=== PATIENT | female | born 1950 | race Caucasian/White ===

== ENCOUNTER → 2017-01-08 | Outpatient (CLI) | payer OTHER, MEDICARE | LOC: BMCIMAGING 10:52 | PROVIDERS: ATTEND Internal Medicine | DX: J98.4 Other disorders of lung (principal); R04.2 Hemoptysis; R05 Cough; H92.01 Otalgia, right ear ==

== ENCOUNTER 2017-03-11 18:30 | Emergency (ER) | payer OTHER, MEDICARE ==
[2017-03-11 18:34] VITALS: BP 147/78; PULSE 56; RESP 14; TEMP 98.2; O2SAT 95
--- NOTE | 2017-03-11 19:06 | EDPHY ---
H & P Time Seen by Provider: 03/11/17 18:41 HPI/ROS: CHIEF COMPLAINT: Left 4th finger injury HISTORY OF PRESENT ILLNESS: 66-year-old female presents to the emergency department by private vehicle with injury to her left 4th finger. The patient was at home and accidentally cut her left 4th finger with a knife. The incident happened just prior to arrival. She is right-hand dominant. She believes her tetanus shot is current. Denies any other trauma or injury. ROS: Denies numbness or tingling in her fingers, pain in her other fingers. Denies retained foreign body. Past Medical/Surgical History: Rheumatoid arthritis, spinal surgery Social History: Has a life partner and lives in [place] Smoking Status: Former smoker Physical Exam: On examination the patient has a very small skin avulsion to the dorsal aspect of her left 4th finger extending to the distal tip of the finger. She is very small injury to her nail bed and partial nail avulsion. Her nail is otherwise intact. There is slow active bleeding noted. No palpable bony tenderness. Full range of motion of her fingers. The other fingers do not appear injured. Constitutional: Initial Vital Signs Temperature (C) 36.8 C 03/11/17 18:33 Heart Rate 56 L 03/11/17 18:33 Respiratory Rate 14 03/11/17 18:33 Blood Pressure 147/78 H 03/11/17 18:33 O2 Sat (%) 95 03/11/17 18:33 O2 Delivery Mode Room Air Allergies/Adverse Reactions: duloxetine HCl [From Cymbalta] Allergy (Unknown, Verified 08/20/11 20:36) Home Medications: Medication Instructions Recorded Aspirin [Aspirin 81mg] 81 mg PO DAILY 08/20/11 Citalopram [CeleXA] mg PO 08/20/11 MDM/Departure - [facility] [place] ED Course/Re-evaluation: 66-year-old female presents with injury to her left 4th finger. Injury feels very small skin avulsion to the left 4th finger. The finger was cleaned and surgical foam dressing applied. The patient believes her tetanus shot is current. I encouraged her to call her primary care provider and update this if needed within 72 hours. - Depart Disposition: Home, Routine, Self-Care Clinical Impression: left fourth finger skin avulsion Condition: Good Instructions: Skin Avulsion (ED), Acute Wounds (ED) Additional Instructions: Return if you notice any signs or symptoms of infection such as redness, swelling, increased pain, fever, purulent drainage. Keep wound dry, clean and protected ideally for at least [address] Elsa Melvin office tomorrow to make sure that your tetanus shot is indeed current. Update this within 72 hours of your injury. Referrals: Elsa Melvin MD [Primary Care Provider] - As per Instructions
== END 2017-03-11 19:38 | disposition home or self-care (01) ==
DX: S61.205A Unspecified open wound of left ring finger without damage to nail, initial encounter (principal); Z79.82 Long term (current) use of aspirin; Z87.891 Personal history of nicotine dependence; W26.0XXA Contact with knife, initial encounter; Y92.009 Unspecified place in unspecified non-institutional (private) residence as the place of occurrence of the external cause; Y99.8 Other external cause status; Y93.89 Activity, other specified

== ENCOUNTER → 2017-03-12 | Outpatient (CLI) | payer OTHER, MEDICARE | LOC: BMCIMAGING 15:13 | PROVIDERS: ATTEND Internal Medicine | DX: Z12.31 Encounter for screening mammogram for malignant neoplasm of breast (principal) | CPT/HCPCS: G0202 ==

== ENCOUNTER 2017-11-19 14:14 | Day surgery (SDC) | payer OTHER, MEDICARE ==
[2017-11-19] MEDS ORDERED: BUPIVACAINE 0.5% 30 ML SDV ONE (14:19)
[2017-11-19] MEDS ORDERED: BACITRACIN 50,000 UNITS/10 ML SYR IRR ONE (14:20)
[2017-11-19] MEDS ORDERED: ceFAZolin 2 GM/SWFI 2 GM/20 ML SYR IVP ONE (14:33)
--- NOTE | 2017-11-19 14:35 | PDHPUP ---
History & Physical Update H&P update statement: This history and physical update is based on an assessment of the patient which was completed after admission or registration (within 24 hours), but prior to the surgery/procedure.
[2017-11-19] MEDS ORDERED: MIDAZOLAM 2 MG/2 ML VIAL IVP ONE (14:37)
--- NOTE | 2017-11-19 14:37 | PDANEPAE ---
ANE History of Present Illness R plantar plate repair ANE Past Medical History - Cardiovascular History Hx Hypertension: No Hx Arrhythmias: No Hx Chest Pain: No Hx Coronary Artery / Peripheral Vascular Disease: No Hx CHF / Valvular Disease: No Hx Palpitations: No - Pulmonary History Hx Oxygen in Use at Home: No Hx Sleep Apnea: Yes Sleep Apnea Screening Result - Last Documented: Positive Pulmonary History Comment: LAURO uses CPAP - Neurologic History Hx Cerebrovascular Accident: No Hx Seizures: No Hx Dementia: No - Endocrine History Hx Diabetes: No - Renal History Hx Renal Disorders: No - Liver History Hx Hepatic Disorders: No - Neurological & Psychiatric Hx Hx Neurological and Psychiatric Disorders: Yes Neurological / Psychiatric History Comment: hX OF CONCUSSION. AUTOIMMUNE POSSIBLE ra - Cancer History Hx Cancer: No - Congenital Disorder History Hx Congenital Disorders: Yes Congenital History Comment: strokes - GI History Hx Gastrointestinal Disorders: No - Other Health History Other Health History: left foot rash - Chronic Pain History Chronic Pain: No - Surgical History Prior Surgeries: back sx 2009, multiple L arm surgeries ANE Review of Systems Review of systems is: negative Review of Systems: - Exercise capacity METS (RN): 4 METS ANE Patient History - Allergies Allergies/Adverse Reactions: duloxetine HCl [From Cymbalta] Allergy (Severe, Verified 11/15/17 11:03) Other-Enter Comments - Home Medications Home medications: home medication list seen and reviewed Home Medications: Citalopram [CeleXA] 08/20/11 [Last Taken Unknown] - NPO status NPO Status: no food or drink >8 hours - Anes Hx Hx Anesthesia Complications (with details): difficult intubation - Smoking Hx Smoking Status: Former smoker - Family Anes Hx Family Anes Hx: none Family Hx Anesthesia Complications: none ANE Labs/Vital Signs - Vital Signs Height: 167.64 cm Weight: 77.111 kg ANE Physical Exam - Airway Neck exam: FROM Mallampati Score: Class 1 Mouth exam: normal dental/mouth exam - Pulmonary Pulmonary: no respiratory distress - Cardiovascular Cardiovascular: regular rate and rhythym - ASA Status ASA Status: II ANE Anesthesia Plan Total IV Anesthesia: Yes
[2017-11-19] MEDS ORDERED: LIDOCAINE 1% 2 ML INJ ID PRN (14:40)
[2017-11-19] MEDS ORDERED: LR 1,000 ML IV ONE (14:40)
[2017-11-19 14:48] VITALS: RESP 18
[2017-11-19] MEDS ORDERED: PROPOFOL/EMULSION 500 MG/50 ML BOTTLE IV ONE (15:02)
[2017-11-19] MEDS ORDERED: LIDOCAINE 2% 100 MG/5 ML SYR ONE (15:18)
[2017-11-19] MEDS ORDERED: DEXAMETHASONE 4 MG/ML VIAL ONE (15:46)
[2017-11-19] MEDS ORDERED: PROMETHAZINE HCL 25 MG/ML INJ IVP PRN (15:51)
[2017-11-19] MEDS ORDERED: DEXAMETHASONE 4 MG/ML VIAL IVP PRN (15:51)
[2017-11-19] MEDS ORDERED: ONDANSETRON 4 MG/2 ML VIAL IVP PRN ×2 (15:51→16:01)
[2017-11-19] MEDS ORDERED: ACETAMINOPHEN 500 MG TAB PO PRN (15:51)
[2017-11-19] MEDS ORDERED: NALOXONE HCL 0.4 MG/ML INJ IVP PRN (15:51)
[2017-11-19] MEDS ORDERED: HYDROCODONE/APAP 5/325 TAB PO PRN (15:51)
[2017-11-19] MEDS ORDERED: OXYCODONE/APAP 5/325 TAB PO PRN (15:51)
[2017-11-19] MEDS ORDERED: fentaNYL 100 MCG/2 ML INJ IVP PRN (15:51)
[2017-11-19] MEDS ORDERED: HYDROmorphONE/DILAUDID 1 MG/ML INJ IVP PRN (15:51)
--- NOTE | 2017-11-19 15:53 | POSTANESTH ---
Post Anesthetic Evaluation Cardiovascular Status: Normal, Stable, Similar to Pre-Op Cond Respiratory Status: Similar to Pre-op Cond. Level of Consciousness/Mental Status: Can Participate in Eval, Mildly Sleepy, Arousable Pain Control: Adequate, Prn Tx Ordered Nausea/Vomiting Control: Adequate, Prn Tx Ordered Complications Possibly Related to Anesthesia: None Noted
[2017-11-19] MEDS ORDERED: ACETAMINOPHEN 500 MG TAB ONE (16:25)
[2017-11-19 16:44] VITALS: PULSE 47
[2017-11-19 16:46] VITALS: TEMP 97.2
[2017-11-19 17:19] VITALS: BP 113/63; O2SAT 96
--- NOTE | 2017-11-20 13:28 | GOP ---
[f rep st] OPERATIVE REPORT DATE OF OPERATION: SURGEON: Enrique Cuadra DPM MEDICAL ASSISTANT PRN: None. ANESTHESIA: MAC with local, 20 mL of 0.5% Marcaine plain. PREOPERATIVE DIAGNOSIS: 1. Metatarsalgia, right foot. 2. Closed fracture dislocation, 2nd metatarsophalangeal joint, right foot. 3. Transient synovitis, right foot. 4. Fracture 2nd metatarsal bone, right foot. POSTOPERATIVE DIAGNOSIS: 1. Metatarsalgia, right foot. 2. Closed fracture dislocation, 2nd metatarsophalangeal joint, right foot. 3. Transient synovitis, right foot. 4. Fracture 2nd metatarsal bone, right foot. PROCEDURE PERFORMED: 1. Second metatarsal osteotomy, right foot. 2. Open treatment of 2nd metatarsophalangeal joint dislocation, right foot. 3. Extensor tenotomy, right foot. 4. Repair of flexor tendon, right foot. 5. Transfer flexor tendon, right foot. 6. Open treatment of metatarsal fracture, right foot. 7. Arthrocentesis, right foot. FINDINGS: Consistent with diagnosis. ESTIMATED BLOOD LOSS: Zero. DESCRIPTION OF PROCEDURE: After identification, the patient was brought in the operating room and pl aced on the operating table in the supine position. Following IV sedation, local anesthesia was obta ined around the patient's right foot utilizing a total of 20 mL of 0.5% Marcaine plain. The right fo ot was then scrubbed, prepped and draped in the usual aseptic manner. Pneumatic ankle tourniquet was placed around the patient's right ankle with ample Webril padding. Esmarch bandage was utilized to exsanguinate the patient's right foot and ankle and the pneumatic ankle tourniquet was then inflated. Attention was directed to the dorsal aspect of the right foot, where a 4 cm linear longitudinal incis ion was made over the dorsal aspect of the 2nd metatarsophalangeal joint, right foot. This incision was deepened through the subcutaneous tissue with care being taken to identify and retract all vital neurovascular structures. Bleeders were ligated and cauterized as necessary. The incision was deepe fernando to the level of the capsular, where a linear capsulotomy was performed. Capsular structures were reflected medially and laterally, thus exposing the 2nd metatarsophalangeal joint at the operative s ite. The extensor digitorum longus tendon was lengthened in a Z technique, and reapproximated with 2 -0 Vicryl. Evaluation of the 2nd metatarsophalangeal joint indicated old fracture of the base of the proximal ph alanx and head of the 2nd metatarsal. A nonunion fracture fragment from the 2nd metatarsal head was visible at the dorsal aspect of the joint, it was excised and passed from the operative field. The j oint was evaluated and noted to be denuded of cartilage, at least 75% at both the metatarsal head and base of the proximal phalanx. A McGlamry elevator was inserted from distal to proximal in the 2nd m etatarsophalangeal joint to serve as a release of adhesions. Attention was directed to the 2nd metatarsal bone, where a Ronald 2nd metatarsal osteotomy was performe d in the head, neck and shaft of the 2nd metatarsal. This osteotomy was a njcvflc-isa-tiryfwn and os teotomy directed from dorsal distal to plantar proximal in the same angle as the weightbearing surfac e of the foot. Upon completion of this [id number]-hcu-sigmvec osteotomy, the capital fragment of the 2n d metatarsal head was pushed proximally and temporary fixated out the way. I distractor was used to evaluate the plantar aspect of the 2nd metatarsophalangeal joint, where extensive damage was noted to both the plantar plate and flexor tendon apparatus. The plantar plate structure was torn approximat elisha 50% and it was extremely fibrotic. The plantar plate was completely disconnected from the base o f the proximal phalanx, thus exposing the flexor tendon complex. The flexor digitorum longus tendon was noted to be partially torn. This was directly repaired with 2-0 Vicryl. The plantar plate struc ture was gathered with a suture passing instrument using a horizontal mattress and FiberWire. This F iberWire was then passed through to 2 crossing drill holes made in the base of the proximal phalanx o f the 2nd digit. These FiberWires were passed from plantar proximal to dorsal distal. Pulling on th kana FiberWire tapes reapproximated both the plantar plate complex, as well as the flexor tendon compl ex to the base of the 2nd proximal phalanx. The 2nd metatarsal was brought back out to length and fi xated using 2 x 2 snap off Arthrex screws in a 2 mm shortened position. This was anatomic. The fibe r tape was then pulled taut, transferring the plantar plate structure as well as the flexor tendon ap paratus to the base of the middle phalanx of the 2nd digit. The FiberWire tape was then tied to itse lf on the dorsal aspect of the 2nd proximal phalanx to serve as stable fixation of the soft tissue st ructures which were transferred. Attention was directed to the cartilaginous joint surface, which was denuded of cartilage. Microfract ure technique was performed in both the head of the 2nd metatarsal and base of the 2nd proximal phala nx. The incision site was then flushed with normal sterile saline solution. Capsular and ligamentou s structures were reapproximated utilizing 3-0 Vicryl. Subcutaneous tissue was reapproximated utiliz ing 3-0 Vicryl and skin reapproximated utilizing 5-0 Vicryl in a running subcuticular suture techniqu e. Upon completion of this procedure, 4 mg dexamethasone was injected into the right foot. The inci leland site was then dressed with Steri-Strips, Adaptic, 4 x 4 gauze, Webril, Sae, Cristobal bandage. The patient was transferred to the postoperative recovery room with vital signs stable and vascular statu s intact to the right foot. Patient tolerated procedure and anesthesia well. HEMOSTASIS: Right pneumatic ankle tourniquet inflated to 250 mmHg for 40 minutes. MATERIALS: Arthrex CPR kit x1. INJECTABLES: 4 mg dexamethasone. CONDITION: Stable. /[id number]/MODL
== END 2017-11-19 17:40 | disposition home or self-care (01) ==
LOC: FSGY 14:14
PROVIDERS: ATTEND Podiatrist
PROC: 0LQV0ZZ Repair Right Foot Tendon, Open Approach (ICD-10-PCS; principal; 2017-11-19 15:30)
PROC: 0L8V0ZZ Division of Right Foot Tendon, Open Approach (ICD-10-PCS; principal; 2017-11-19 15:30)
PROC: 0QQN0ZZ Repair Right Metatarsal, Open Approach (ICD-10-PCS; principal; 2017-11-19 15:30)
PROC: 0SSM04Z Reposition Right Metatarsal-Phalangeal Joint with Internal Fixation Device, Open Approach (ICD-10-PCS; principal; 2017-11-19 15:30)
DX: S93.124A Dislocation of metatarsophalangeal joint of right lesser toe(s), initial encounter (principal); S92.321A Displaced fracture of second metatarsal bone, right foot, initial encounter for closed fracture; M67.371 Transient synovitis, right ankle and foot; W01.198A Fall on same level from slipping, tripping and stumbling with subsequent striking against other object, initial encounter; G47.33 Obstructive sleep apnea (adult) (pediatric); Z99.89 Dependence on other enabling machines and devices; Z87.891 Personal history of nicotine dependence
CPT/HCPCS: C1713; J0690; J1100; J2001; J2250; J2704

== ENCOUNTER → 2018-01-12 | Outpatient (CLI) | payer OTHER, MEDICARE ==
[~2018-01-12] MED LIST: IOPAMIDOL (ISOVUE-300) 100 ML BTL ONE
== END ==
LOC: FIMAGING 12:47
PROVIDERS: ATTEND Family Medicine
DX: S20.212A Contusion of left front wall of thorax, initial encounter (principal); I70.0 Atherosclerosis of aorta; M51.36 Other intervertebral disc degeneration, lumbar region; M48.061 Spinal stenosis, lumbar region without neurogenic claudication
CPT/HCPCS: 71260; 74177; Q9967

== ENCOUNTER → 2018-03-13 | Outpatient (CLI) | payer OTHER, MEDICARE | LOC: BMCIMAGING 08:36 | PROVIDERS: ATTEND Internal Medicine | DX: Z12.31 Encounter for screening mammogram for malignant neoplasm of breast (principal) ==

== ENCOUNTER → 2018-06-06 | Outpatient (CLI) | payer OTHER, MEDICARE | LOC: BMCIMAGING 10:19 | PROVIDERS: ATTEND Internal Medicine | DX: Z13.820 Encounter for screening for osteoporosis (principal); M85.89 Other specified disorders of bone density and structure, multiple sites; Z78.0 Asymptomatic menopausal state; Z87.81 Personal history of (healed) traumatic fracture ==

== ENCOUNTER 2018-12-24 19:49 | Emergency (ER) | payer OTHER, MEDICARE ==
--- NOTE | 2018-12-24 20:51 | EDPHY ---
H & P Time Seen by Provider: 12/24/18 20:06 HPI/ROS: CHIEF COMPLAINT: Accidental ingestion HISTORY OF PRESENT ILLNESS: Patient is a 68-year-old female who presents emergency department after having an unknown ingestion. The patient states that she was given arch containing and chocolate from her son for . She has not eaten it since but decided to have her first taste this evening. She thought it tasted off. However, she was intrigued by the spiciness of the chocolate so took a second bite. She then had a sip of red wine. She felt a sudden burning sensation in her her mouth and tongue. This extended to her throat. She states that initially her tongue and throat were quite red. This has improved. She has no chest pain or shortness of breath. Her symptoms are improving. She does not regularly have allergic reaction and denies anaphylaxis. REVIEW OF SYSTEMS: 10 systems were reveiwed and are negative with the exception of the elements mentioned in the history of present illness. Past Medical/Surgical History: Includes rheumatoid arthritis, cervical injury Past surgical history: L5, L6 fusion Smoking Status: Former smoker Physical Exam: Vitals noted GENERAL: Well-appearing, in no acute distress, alert. HEENT: Eyes normal to inspection, normal pharynx, no signs of dehydration. No erythema. NECK: Normal, supple. No stridor. RESPIRATORY: Clear to auscultation bilaterally, no rales, rhonchi or wheezing. Normal CVS: Regular rate and rhythm, no rubs, murmurs, or gallops. ABDOMEN: Soft, nontender, nondistended, no organomegaly. BACK: Normal to inspection, no CVA tenderness. SKIN: Normal color, no rash, warm, dry. No pallor. EXTREMITIES: No pedal edema, no joint swelling. NEURO/PSYCH: Alert and oriented, normal mood and affect, normal motor sensory exam. Constitutional: Initial Vital Signs Temperature (C) 36.6 C 12/24/18 19:58 Heart Rate 56 L 12/24/18 19:58 Respiratory Rate 20 12/24/18 19:58 Blood Pressure 143/74 H 12/24/18 19:58 O2 Sat (%) 96 12/24/18 19:58 O2 Delivery Mode Room Air Allergies/Adverse Reactions: duloxetine HCl [From Cymbalta] Allergy (Severe, Verified 12/24/18 19:57) Other-Enter Comments Home Medications: Medication Instructions Recorded Citalopram [CeleXA] 08/20/11 Medical Decision Making ED Course/Re-evaluation: The in the emergency department I discussed possible etiologies with the patient. I answered all her questions. I rechecked the patient. She had no complaints of shortness of breath. No redness or swelling. Patient was given warnings prior to leaving. She will return with worsening symptoms. Differential Diagnosis: My differential includes but is not limited to allergic reaction, anaphylaxis, exposure, accidental ingestion Departure - Departure Disposition: Home, Routine, Self-Care Clinical Impression: Allergic reaction Qualifiers: Encounter type: initial encounter Qualified Code(s): T78.40XA - Allergy, unspecified, initial encounter Condition: Good Instructions: Food Allergy (ED) Additional Instructions: Return with increasing shortness of breath, increased throat swelling, redness, or any other concerns Referrals: Elsa Melvin MD [Primary Care Provider] - 5-7 days, call for appt.
[2018-12-24 21:34] VITALS: BP 127/84
== END 2018-12-24 21:34 | disposition home or self-care (01) ==
DX: T78.1XXA Other adverse food reactions, not elsewhere classified, initial encounter (principal)

== ENCOUNTER → 2018-12-26 | Outpatient (CLI) | payer OTHER, MEDICARE | LOC: FIMAGING 16:45 | PROVIDERS: ATTEND Otolaryngology | DX: T54.91XA Toxic effect of unspecified corrosive substance, accidental (unintentional), initial encounter (principal); R07.9 Chest pain, unspecified; K44.9 Diaphragmatic hernia without obstruction or gangrene ==

== ENCOUNTER → 2019-03-14 | Outpatient (CLI) | payer OTHER, MEDICARE | LOC: BMCIMAGING 13:39 ==